=== PATIENT | male | born 1995 | race Two or more races ===

== ENCOUNTER 2018-12-25 17:53 | Emergency (ER) | payer SELFPAY ==
[2018-12-25] MEDS ORDERED: TDAP ADULT 0.5 ML INJ (BOOSTRIX) IM ONE (18:13)
[2018-12-25] MEDS ORDERED: CIPROFLOXACIN 500 MG TAB PO ONE (18:27)
--- NOTE | 2018-12-25 18:28 | EDPHY ---
H & P Time Seen by Provider: 12/25/18 18:20 HPI/ROS: CHIEF COMPLAINT: Stepped on a nail HISTORY OF PRESENT ILLNESS: Stepped on a clara nail in the back yd that had been there for several years, happened about an hour ago. Went through his sneaker and into the ball of his foot on the left side. REVIEW OF SYSTEMS: No foreign body sensation, it did not break off, no weakness or numbness in the toes. PAST MEDICAL HISTORY: Negative, tetanus not up-to-date Social history: Nonsmoker General Appearance: Alert and conversant, cooperative. Puncture wound on the ball of the foot at the base of The 3rd toe. No foreign body palpated. No discharge or drainage. No bony tenderness. Normal motor sensory and vascular. Emergency Department course/MDM: Local wound anesthesia with 0.5% Marcaine without epinephrine. Tetanus update, wound care, ciprofloxacin discussed and consented. Wound check in 2 days. Smoking Status: Never smoked Constitutional: Initial Vital Signs Temperature (C) 37 C 12/25/18 18:07 Heart Rate 70 12/25/18 18:07 Respiratory Rate 18 12/25/18 18:07 Blood Pressure 106/66 12/25/18 18:07 O2 Sat (%) 96 12/25/18 18:07 O2 Delivery Mode Room Air Allergies/Adverse Reactions: No Known Allergies Allergy (Verified 12/25/18 18:06) Home Medications: Medication Instructions Recorded Ciprofloxacin HCl [Ciprofloxacin] 500 mg PO BID #14 tab 12/25/18 MDM/Departure - MDM Imaging Results: Imaging Impressions Foot X-Ray 12/25/18 18:27 Impression: Nothing acute identified. Imaging: I viewed and interpreted images myself Medications Given: Discontinued Medications Ciprofloxacin (Cipro) 500 mg PO EDNOW ONE PRN Reason: Protocol Stop: 12/25/18 18:28 Last Admin: 12/25/18 18:34 Dose: 500 mg Diphtheria/Tetanus/Acell Pertussis (Boostrix) 0.5 ml IM .ONCE ONE Stop: 12/25/18 18:14 Last Admin: 12/25/18 18:17 Dose: 0.5 ml - Depart Disposition: Home, Routine, Self-Care Clinical Impression: Puncture wound of foot, left Qualifiers: Encounter type: initial encounter Qualified Code(s): S91.332A - Puncture wound without foreign body, left foot, initial encounter Condition: Good Instructions: Puncture Wound (ED) Prescriptions: Ciprofloxacin HCl [Ciprofloxacin] 500 mg PO BID #14 tab Referrals: [facility] [Other] - As per Instructions (needs 2 day wound recheck this Sunday in the office)
[2018-12-25 19:31] VITALS: BP 106/62
== END 2018-12-25 19:55 | disposition home or self-care (01) ==
DX: S91.332A Puncture wound without foreign body, left foot, initial encounter (principal); W45.0XXA Nail entering through skin, initial encounter; Y92.007 Garden or yard of unspecified non-institutional (private) residence as the place of occurrence of the external cause